=== PATIENT | female | born 1990 | race Caucasian/White ===

== ENCOUNTER 2016-05-08 10:03 | Emergency (ER) | payer OTHER ==
[2016-05-08 11:18] VITALS: BP 122/75
--- NOTE | 2016-05-08 11:28 | UC ---
Throat Pain/Nasal Brenden HPI - HPI Summary HPI Summary: has had a cold and sinus congestion for the past 3 weeks, now it is centered in the right maxillary sinus and is having eye pain and ear pain. - History of Current Complaint Chief Complaint: UCHeadache Stated Complaint: RAMEY,SINUS COMPLAINT Time Seen by Provider: 05/08/16 11:20 Hx Obtained From: Patient Hx Last Menstrual Period: 04/27/16 ?: No Onset/Duration: Sudden Onset, Lasting Weeks Severity: Severe Pain Intensity: 8 Pain Scale Used: 0-10 Numeric Cough: None Associated Signs & Symptoms: Positive: Sinus Discomfort, Nasal Discharge - Epiglottits Risk Factors Epiglottis Risk Factors: Negative - Allergies/Home Medications Allergies/Adverse Reactions: Allergies Allergy/AdvReac Type Severity Reaction Status Date / Time Penicillins Allergy Unknown Vomiting Verified 05/08/16 11:18 Acetaminophen Allergy Unknown Verified 05/08/16 11:18 Reaction Details PMH/Surg Hx/FS Hx/Imm Hx Previously Healthy: Yes Endocrine History Of: Denies: Diabetes, Thyroid Disease Cardiovascular History Of: Denies: Cardiac Disorders, Hypertension Respiratory History Of: Denies: COPD, Asthma GI/ History Of: Reports: Ulcer - HX OF MANY YEARS AGO, Kidney Stones - HX OF Psychological History Of: Reports: Anxiety, Depression - Surgical History Surgical History: Yes Surgery Procedure, Year, and Place: renal stent for right kidney stone, 2009 - Family History Known Family History: Positive: Diabetes - Social History Alcohol Use: Occasionally Alcohol Amount: 1 PER WEEK Substance Use Type: None Smoking Status (MU): Light Every Day Tobacco Smoker Type: Cigarettes Amount Used/How Often: 3-4 cigs a day Length of Time of Smoking/Using Tobacco: 10+ YEARS Have You Smoked in the Last Year: Yes Household Exposure Type: Cigarettes - Immunization History Most Recent Influenza Vaccination: 12/15/13 Most Recent Tetanus Shot: 04/02/14 Most Recent Pneumonia Vaccination: none Review of Systems Constitutional: Negative Skin: Negative ENT: Ear Ache, Nasal Discharge Respiratory: Negative Cardiovascular: Negative Gastrointestinal: Negative Genitourinary: Negative Motor: Negative Neurovascular: Negative Musculoskeletal: Negative Neurological: Headache Psychological: Negative All Other Systems Reviewed And Are Negative: Yes Physical Exam Triage Information Reviewed: Yes Appearance: Well-Nourished, Ill-Appearing, Pain Distress Vital Signs: Initial Vital Signs Temp 98.5 F 05/08/16 11:12 Pulse 95 03/03/17 11:12 Resp 18 05/08/16 11:12 BP 122/75 05/08/16 11:12 Pulse Ox 97 05/08/16 11:12 Vital Signs Reviewed: Yes Eye Exam: Normal Eyes: Positive: Conjunctiva Clear ENT: Positive: Hearing grossly normal, Pharyngeal erythema, Nasal congestion, Nasal drainage, TM dull - right Dental Exam: Normal Neck exam: Normal Neck: Positive: Supple, Nontender, No Lymphadenopathy Respiratory Exam: Normal Respiratory: Positive: Chest non-tender, Lungs clear, Normal breath sounds Cardiovascular Exam: Normal Cardiovascular: Positive: RRR, No Murmur, Pulses Normal Abdominal Exam: Normal Abdomen Description: Positive: Nontender, No Organomegaly, Soft Bowel Sounds: Positive: Present Musculoskeletal Exam: Normal Musculoskeletal: Positive: Strength Intact, ROM Intact, No Edema Neurological Exam: Normal Neurological: Positive: Alert, Muscle Tone Normal Psychological Exam: Normal Skin Exam: Normal Throat Pain/Nasal Course/Dx - Course Course Of Treatment: hx obtained, exam performed, medication reviewed, prescribed treamtent for sinusitis - Differential Dx/Diagnosis Differential Diagnosis/HQI/PQRI: Influenza, Laryngitis, Pharyngitis, Sinusitis, URI, Other - migraine Provider Diagnoses: sinusitis of right maxillary sinus. ear pain. headache, frontal Discharge - Discharge Plan Condition: Stable Disposition: HOME Prescriptions: Cephalexin CAP* [Keflex CAP*] 500 mg PO BID #20 cap predniSONE TAB* [Deltasone TAB*] 40 mg PO DAILY #10 tab Patient Education Materials: Sinusitis (ED) Additional Instructions: take the medication as prescribed. Increase your fluid intake and get plenty of rest. Use ibuprofen or tylenol for pain and fever.
[2016-05-08] MEDS ORDERED: Acetaminophen TAB* 325 MG PO ONE (11:32)
== END 2016-05-08 11:47 | disposition home or self-care (01) ==
LOC: UCCORT 10:03
DX: J32.0 Chronic maxillary sinusitis (principal); H92.09 Otalgia, unspecified ear; R51 Headache; Z88.6 Allergy status to analgesic agent; Z88.0 Allergy status to penicillin; F17.210 Nicotine dependence, cigarettes, uncomplicated
CPT/HCPCS: 99212; A9270-GY; G0463

== ENCOUNTER 2018-11-24 15:04 | Emergency (ER) | payer SELFPAY ==
[2018-11-24 15:48] VITALS: BP 120/84
--- NOTE | 2018-11-24 16:05 | UC ---
Ear Complaint HPI - HPI Summary HPI Summary: Pt presents with sudden onset of right ear pain right side facial pain without injury that began today while at work. - History of Current Complaint Chief Complaint: UCEar Stated Complaint: RT EAR COMPLAINT Time Seen by Provider: 11/24/18 15:58 Hx Obtained From: Patient Hx Last Menstrual Period: 11/24/18 ?: No Onset/Duration: Sudden Onset, Other - imporved since applyin gwarm pack at . Severity Initially: Moderate Severity Currently: Mild Pain Intensity: 9 Alleviating Factors: Other (Noted In Comments) - warm pack Associated Signs/Symptoms: Positive: Hearing Loss - Allergies/Home Medications Allergies/Adverse Reactions: Allergies Allergy/AdvReac Type Severity Reaction Status Date / Time MS Penicillins [Penicillins] Allergy Unknown Vomiting Verified 11/24/18 15:49 MS Acetaminophen Allergy Unknown Verified 11/24/18 15:49 [Acetaminophen] Reaction Details PMH/Surg Hx/FS Hx/Imm Hx Previously Healthy: Yes - Surgical History Surgical History: Yes Surgery Procedure, Year, and Place: renal stent for right kidney stone, 2009 - Family History Known Family History: Positive: Diabetes - Social History Occupation: Employed Full-time Lives: With Family Alcohol Use: Occasionally Alcohol Amount: 1 PER WEEK Substance Use Type: Marijuana Smoking Status (MU): Light Every Day Tobacco Smoker Type: Cigarettes Amount Used/How Often: 3-4 cigs a day Length of Time of Smoking/Using Tobacco: 10+ YEARS Have You Smoked in the Last Year: Yes Household Exposure Type: Cigarettes - Immunization History Most Recent Influenza Vaccination: 12/15/13 Most Recent Tetanus Shot: 04/02/14 Most Recent Pneumonia Vaccination: none Vaccination Up to Date: Yes Review of Systems All Other Systems Reviewed And Are Negative: Yes Constitutional: Positive: Negative Skin: Positive: Negative ENT: Positive: Ear Ache Respiratory: Positive: Negative Cardiovascular: Positive: Negative Gastrointestinal: Positive: Negative Genitourinary: Positive: Negative Motor: Positive: Negative Neurovascular: Positive: Negative Musculoskeletal: Positive: Negative Neurological: Positive: Negative Psychological: Positive: Negative Is Patient Immunocompromised?: No Physical Exam Triage Information Reviewed: Yes Appearance: Well-Appearing Vital Signs: Initial Vital Signs Temp 98.6 F 11/24/18 15:43 Pulse 80 11/24/18 15:43 Resp 18 11/24/18 15:43 BP 120/84 11/24/18 15:43 Pulse Ox 100 11/24/18 15:43 Vital Signs Reviewed: Yes Eye Exam: Normal ENT Exam: Normal ENT: Positive: Normal ENT inspection, Hearing grossly normal Dental: Positive: Gross Decay/Caries @ - poor dentition Neck exam: Normal Neck: Positive: Supple, Nontender, No Lymphadenopathy Respiratory Exam: Normal Respiratory: Positive: No respiratory distress Musculoskeletal Exam: Normal Neurological Exam: Normal Psychological Exam: Normal Skin Exam: Normal Ear Complaint Course/Dx - Differential Dx/Diagnosis Differential Diagnosis/HQI/PQRI: Cerumen Impaction, Otitis Externa, Otitis Media , TMJ Syndrome, Trigeminal Nueralgia Provider Diagnosis: Ear ache Discharge ED - Sign-Out/Discharge Documenting (check all that apply): Patient Departure All imaging exams completed and their final reports reviewed: No Studies - Discharge Plan Condition: Stable Disposition: HOME Patient Education Materials: Earache (ED) Referrals: [facility] [place] [facility] [Outside] - If Needed No Primary Care Phys,NOPCP [Primary Care Provider] - - Billing Disposition and Condition Condition: STABLE Disposition: Home
== END 2018-11-24 16:13 | disposition home or self-care (01) ==
LOC: UCCORT 15:04
DX: H92.01 Otalgia, right ear (principal); Z88.6 Allergy status to analgesic agent; Z88.0 Allergy status to penicillin; F17.210 Nicotine dependence, cigarettes, uncomplicated
CPT/HCPCS: 99211; G0463

== ENCOUNTER 2018-11-28 10:15 | Emergency (ER) | payer SELFPAY ==
[2018-11-28 11:13] VITALS: BP 131/77
--- NOTE | 2018-11-28 12:07 | UC ---
Dental HPI - HPI Summary HPI Summary: 28-year-old female who started having some right-sided ear pain and right-sided jaw/toothache pain on of last week. On Wednesday she went to see her dentist who took x-rays but did not comment on the results. The dentist advised her she probably has an infection and started her on clindamycin which the patient has continued. Patient also has been taking Percocet. She states today the right side of her face is mildly numb and tingly but the right earache is gone and today the jaw continues to have pain. She denies any fever or chills. She states that occasionally she'll feel like she has some difficulty swallowing. - History of Current Complaint Chief Complaint: UCDentalProblem Stated Complaint: DENTAL COMPLAINT Time Seen by Provider: 11/28/18 11:43 Hx Obtained From: Patient Hx Last Menstrual Period: 11/24/18 ?: No Onset/Duration: Gradual Onset Severity: Mild Pain Intensity: 2 Aggravating Factor(s): Chewing Alleviating Factor(s): OTC Meds Related History: Other - The dentist told the patient that she has poor dentition and needs some teeth pulled. - Allergies/Home Medications Allergies/Adverse Reactions: Allergies Allergy/AdvReac Type Severity Reaction Status Date / Time Penicillins Allergy Vomiting Verified 11/28/18 11:14 Home Medications: Home Medications Clindamycin Cap(NF) [Clindamycin Cap 300 mg Cap(NF)] 300 mg PO TID 11/28/18 [ History Confirmed 11/28/18] oxyCODONE/Acetam5/325MG PREPAK mg PO Q6H 11/28/18 [History] oxyCODONE/Acetamin 5/325 MG* [Percocet 5/325 TAB*] 1 tab PO Q6H PRN 11/28/18 [ History Confirmed 11/28/18] PMH/Surg Hx/FS Hx/Imm Hx Previously Healthy: Yes - Surgical History Surgical History: Yes Surgery Procedure, Year, and Place: renal stent for right kidney stone, 2009 - Family History Known Family History: Positive: Diabetes - Social History Alcohol Use: Occasionally Alcohol Amount: 1 PER WEEK Substance Use Type: Marijuana Substance Use Comment - Amount & Last Used: today Smoking Status (MU): Light Every Day Tobacco Smoker Type: Cigarettes Amount Used/How Often: 3-4 cigs a day Length of Time of Smoking/Using Tobacco: 10+ YEARS Have You Smoked in the Last Year: Yes Household Exposure Type: Cigarettes - Immunization History Most Recent Influenza Vaccination: 12/15/13 Most Recent Tetanus Shot: 04/02/14 Most Recent Pneumonia Vaccination: none Vaccination Up to Date: Yes Review of Systems All Other Systems Reviewed And Are Negative: Yes ENT: Positive: Other - Patient complains of right-sided jaw pain which has continued. Neurovascular: Positive: Other - Patient states she has some right facial numbness and tingling. Is Patient Immunocompromised?: No Physical Exam Triage Information Reviewed: Yes Appearance: Well-Appearing, No Pain Distress, Well-Nourished Vital Signs: Initial Vital Signs Temp 97.5 F 11/28/18 11:05 Pulse 82 11/28/18 11:05 Resp 18 11/28/18 11:05 BP 131/77 11/28/18 11:05 Pulse Ox 100 11/28/18 11:05 Vital Signs Reviewed: Yes Eyes: Positive: Conjunctiva Clear ENT: Positive: Pharynx normal, TMs normal, Uvula midline, Other - TMJ area is nontender on palpation and there is no clicking with opening and closing her mouth. Dental: Negative: Percussion Tenderness @, Dental Fracture @ - In the area of concern the teeth are nontender on firm palpation, the gumline is normal color, there is no evidence of abscess. Mucous membranes are moist. I don't see any broken molars or cavities in the right lower jaw., Abscess @ Neck: Positive: Supple, Nontender, No Lymphadenopathy Respiratory: Positive: Lungs clear, Normal breath sounds, No respiratory distress, No accessory muscle use Cardiovascular: Positive: RRR, No Murmur, Pulses Normal, Brisk Capillary Refill Musculoskeletal Exam: Normal Neurological Exam: Normal Neurological: Positive: Other: - Cranial nerves II through XII are intact, normal sensation with touching her face. Psychological Exam: Normal Skin Exam: Normal Dental Complaint Course/Dx - Course Course Of Treatment: I'm not sure what is causing this patient's continued jaw pain however she can stop the antibiotic for 24 hours and see if the symptoms improve. She can alternate regular Tylenol every 4 hours with ibuprofen 600 mg every 8 hours as needed for pain. I advised her to follow-up with Dr. Todd, ear nose and throat physician since she would rather stay in [place] for follow-up. I don' t feel this is Simon's palsy at this point in time. She is talking without difficulty, no difficulty breathing, she is not drooling and respirations are normal. - Differential Dx/Diagnosis Provider Diagnosis: Jaw pain Discharge ED - Sign-Out/Discharge Documenting (check all that apply): Patient Departure All imaging exams completed and their final reports reviewed: No Studies - Discharge Plan Condition: Good Disposition: HOME Patient Education Materials: Toothache (ED) Referrals: Diego Todd MD [Medical Doctor] - No Primary Care Phys,NOPCP [Primary Care Provider] - Additional Instructions: May alternate Tylenol every 4 hours with ibuprofen 600 mg every 8 hours with food. You may stop the antibiotic and see if you have improvement in her symptoms. If you have continued symptoms, follow-up with Dr. Todd an ear nose and throat physician in [place]. If you develop any difficulty breathing, wheezing or feeling like your throat is closing or unable to swallow your saliva , follow-up in the emergency room. - Billing Disposition and Condition Condition: GOOD Disposition: Home - Attestation Statements Provider Attestation: Per institutional requirements, I have reviewed the chart, however, I was not consulted specifically or made aware of this patient by the midlevel provider. I did not personally evaluate, interact with , or disposition this patient.
== END 2018-11-28 12:14 | disposition home or self-care (01) ==
LOC: UCCORT 10:15
DX: R68.84 Jaw pain (principal); Z88.0 Allergy status to penicillin; F17.210 Nicotine dependence, cigarettes, uncomplicated
CPT/HCPCS: 99211; G0463